=== PATIENT | male | born 1970 | race Caucasian/White ===

== ENCOUNTER → 2019-07-25 10:52 | Outpatient (CLI) | payer OTHER, SELFPAY ==
--- NOTE | 2019-07-25 | DI.MRI.S_ITS ---
PROCEDURE: MR KNEE RT WO CON INDICATIONS: Monoarthritis, not elsewhere classified, right kne TECHNIQUE: Noncontrast sagittal PD fast spin echo and T2 fast spin echo with fat saturation, sagittal 3-D FLASH with fat saturation; coronal T1 spin echo and PD fast spin echo with fat saturation, and axial PD fast spin echo with fat saturation through the knee. COMPARISON: None. FINDINGS: Image quality: Excellent. Menisci: Mild myxoid degeneration involving the medial meniscus however no discrete tear. The lateral meniscus appears intact Cruciate ligaments: The anterior and posterior cruciate ligaments appear intact. Medial structures: The medial collateral ligament appears intact. Minimal insertional semimembranosus tendinopathy. Visualized portions of the pes anserinus tendons appear normal. No abnormal bursal fluid. Lateral structures: The lateral collateral ligament demonstrates thickening and intrasubstance signal change in keeping with low grade sprain, statistically chronic, although technically age indeterminate. The biceps femoris tendon appears intact. Popliteus tendon grossly unremarkable. Iliotibial band appears intact. Anterior structures: Quadriceps tendon intact. Medial and lateral patellofemoral ligaments intact. There is mild proximal patellar tendinopathy. Minimal prepatellar and superficial infrapatellar subcutaneous edema/fluid. Bones and cartilage: No focal marrow contusion or discrete low signal fracture line. Within the medial compartment, mild intrasubstance signal changes along the central weightbearing femoral and tibial articular cartilage without focal defect Within the lateral compartment, surface fraying and intrasubstance signal changes involving the central weightbearing tibial and femoral articular cartilage Within the patellofemoral compartment, intrasubstance signal change involving the patellar cartilage overlying the lateral and medial facet. Femoral trochlear cartilage appears grossly intact Joint space: No pathologic joint effusion. 4 cm cephalocaudad dimension Carcamo's cyst. No specific evidence of intra-articular loose body. IMPRESSION: Mild degenerative joint disease as above. Minimal insertional semimembranosus tendinopathy. Mild proximal patellar tendinopathy. Carcamo's cyst Dictated by: Michael Whitaker M.D. on 07/25/2019 at 13:06 Approved by: Michael Whitaker M.D. on 07/25/2019 at 13:12
== END ==
PROVIDERS: PCP Nurse Practitioner Family; Visit Provider Orthopaedic Surgery
DX: M13.161 Monoarthritis, not elsewhere classified, right knee (principal); M71.21 Synovial cyst of popliteal space [Baker], right knee
CPT/HCPCS: 73721